=== PATIENT | male | born 1975 | race Caucasian/White ===

== ENCOUNTER 2025-01-31 17:30 | Emergency (ER) | payer BC, MEDICAID ==
[2025-01-31] MEDS: Iopamidol 755 Mg/ML 100 ML Bottle IVPUSH ONE (17:38)
[2025-01-31] MEDS ORDERED: Sodium Chloride 0.9% 10 ML Syringe FLUSH PRN (17:47)
[2025-01-31 18:05] LABS: BASOPHILS PERCENT AUTO 0.6 % (0.0-1.0); EOSINOPHILS PERCENT AUTO 2.6 % (1.0-3.0); LYMPHOCYTES PERCENT AUTO 33.0 % (20.5-50.1); MONOCYTES PERCENT AUTO 6.5 % (2-8); NEUTROPHILS PERCENT AUTO 57.3 % (42.2-75.2); PLATELET COUNT,PLT 75 10^3/uL (150-450); RED BLOOD CELL COUNT 4.62 10^6/uL (4.6-6.2); WHITE BLOOD CELL COUNT,WBC 6.9 10^3/uL (5.0-10.0)
[2025-01-31 18:25] LABS: INR 1.0 (0.9-1.2); PTT,PARTIAL THROMBOPLSTIN TIME 18.9 SEC (22.0-34.0)
[2025-01-31 18:31] LABS: LACTIC ACID 1.1 mmol/L (0.4-2.0)
[2025-01-31] MEDS: fentaNYL 100 MCG/2 ML SDV IVPUSH ONE (18:34)
[2025-01-31 18:40] LABS: ALANINE AMINOTRANSFERASE,ALT 23 U/L (16-63); ASPARTATE AMNIOTRANSFERASE,AST 27 U/L (15-37); BILIRUBIN TOTAL 0.2 mg/dL (0.2-1.0); BLOOD UREA NITROGEN,BUN 7 mg/dL (7-18); CARBON DIOXIDE,CO2 27 mmol/L (21-32); CHLORIDE,CL 109 mmol/L (98-107); CREATININE 0.62 mg/dL (0.70-1.30); GLUCOSE RANDOM 108 mg/dL (70-99); POTASSIUM,K 4.0 mmol/L (3.5-5.1); PROTEIN TOTAL,TP 7.0 g/dL (6.4-8.2); SODIUM,NA 146 mmol/L (136-145)
[2025-01-31 18:42] LABS: A/G RATIO 0.84; ESTIMATED GFR 119 mL/min (>=60); ETHANOL BLOOD MEDICAL < 3 mg/dL (0)
[2025-01-31 18:50] LABS: APPEARANCE,URINE CLEAR (CLEAR); GLUCOSE,URINE NEGATIVE (NEGATIVE); OCCULT BLOOD,URINE NEGATIVE (NEGATIVE)
[2025-01-31 18:51] LABS: METHAMPHETAMINES,URINE NEGATIVE (NEGATIVE)
[2025-01-31 18:52] LABS: AMPHETAMINES,URINE NEGATIVE (NEGATIVE); BARBITURATES,URINE NEGATIVE (NEGATIVE); MDMA (ECSTASY), URINE NEGATIVE (NEGATIVE); OPIATES,URINE NEGATIVE (NEGATIVE); OXYCODONE,URINE NEGATIVE (NEGATIVE); PHENCYCLIDINE,URINE NEGATIVE (NEGATIVE); TCA,URINE NEGATIVE (NEGATIVE)
== END 2025-01-31 19:26 ==
LOC: DL.ED 17:30
DX: I10 Essential (primary) hypertension (principal); R47.01 Aphasia; Z86.73 Personal history of transient ischemic attack (TIA), and cerebral infarction without residual deficits
CPT/HCPCS: 36415; 70450; 70496; 70498; 71045; 80053; 80305; 80307; 81003; 82947; 83605; 83735; 85025; 85610; 85730; 86140; 93005; 93010; 96374; 96375; 99285; J3010; J3360; Q9967

== ENCOUNTER 2025-02-13 15:22 | Emergency (ER) | payer BC ==
[2025-02-13] MEDS ORDERED: Sodium Chloride 0.9% 10 ML Syringe FLUSH PRN (15:57)
[2025-02-13] MEDS: Dexamethasone 4 MG/ML SDV IVPUSH ONE (16:19)
[2025-02-13 16:21] LABS: BASOPHILS PERCENT AUTO 0.3 % (0.0-1.0); EOSINOPHILS PERCENT AUTO 2.2 % (1.0-3.0); LYMPHOCYTES PERCENT AUTO 27.2 % (20.5-50.1); MONOCYTES PERCENT AUTO 11.0 % (2-8); NEUTROPHILS PERCENT AUTO 59.3 % (42.2-75.2); PLATELET COUNT,PLT 427 10^3/uL (150-450); RED BLOOD CELL COUNT 4.78 10^6/uL (4.6-6.2); WHITE BLOOD CELL COUNT,WBC 10.1 10^3/uL (5.0-10.0)
[2025-02-13 16:46] LABS: LACTIC ACID 1.0 mmol/L (0.4-2.0)
[2025-02-13 16:48] LABS: INR 1.0 (0.9-1.2); PTT,PARTIAL THROMBOPLSTIN TIME 26.7 SEC (22.0-34.0)
[2025-02-13 16:53] LABS: ALANINE AMINOTRANSFERASE,ALT 31 U/L (16-63); ASPARTATE AMNIOTRANSFERASE,AST 35 U/L (15-37); BILIRUBIN TOTAL 0.4 mg/dL (0.2-1.0); BLOOD UREA NITROGEN,BUN 11 mg/dL (7-18); CARBON DIOXIDE,CO2 32 mmol/L (21-32); CHLORIDE,CL 103 mmol/L (98-107); CREATININE 0.59 mg/dL (0.70-1.30); EST CRCL DRUG DOSING (CG) 217.87 mL/min; GLUCOSE RANDOM 90 mg/dL (70-99); POTASSIUM,K 4.3 mmol/L (3.5-5.1); PROTEIN TOTAL,TP 7.8 g/dL (6.4-8.2); SODIUM,NA 141 mmol/L (136-145)
[2025-02-13 16:56] LABS: A/G RATIO 0.70; ESTIMATED GFR 120 mL/min (>=60); ETHANOL BLOOD MEDICAL < 3 mg/dL (0)
[2025-02-13 17:22] LABS: AMPHETAMINES,URINE NEGATIVE (NEGATIVE); BARBITURATES,URINE NEGATIVE (NEGATIVE); MDMA (ECSTASY), URINE NEGATIVE (NEGATIVE); METHAMPHETAMINES,URINE NEGATIVE (NEGATIVE); OPIATES,URINE NEGATIVE (NEGATIVE); OXYCODONE,URINE NEGATIVE (NEGATIVE); PHENCYCLIDINE,URINE NEGATIVE (NEGATIVE); TCA,URINE POSITIVE (NEGATIVE)
== END 2025-02-13 18:18 | disposition home or self-care (01) ==
LOC: DL.ED 15:22
DX: R47.81 Slurred speech (principal); R51.9 Headache, unspecified; Z86.73 Personal history of transient ischemic attack (TIA), and cerebral infarction without residual deficits
CPT/HCPCS: 36415; 70450; 80053; 80305; 80307; 83605; 83735; 84484; 85025; 85610; 85730; 86140; 93005; 93010; 96374; 99284; 99285; A9270; J1100

== ENCOUNTER 2025-02-14 21:55 | Inpatient (IN) | payer BC ==
[2025-02-14] MEDS: Ondansetron 4 MG/2 ML SDV IVPUSH ONE (23:02)
[2025-02-14 23:05] LABS: PLATELET COUNT,PLT 508 10^3/uL (150-450); RED BLOOD CELL COUNT 5.13 10^6/uL (4.6-6.2); WHITE BLOOD CELL COUNT,WBC 23.0 10^3/uL (5.0-10.0)
[2025-02-14] MEDS: Ketorolac 30 MG/ML SDV IM ONE (23:06)
[2025-02-14 23:08] LABS: BASOPHILS PERCENT AUTO 0.0 % (0.0-1.0); EOSINOPHILS PERCENT AUTO 0.0 % (1.0-3.0); LYMPHOCYTES PERCENT AUTO 11.0 % (20.5-50.1); MONOCYTES PERCENT AUTO 5.3 % (2-8); NEUTROPHILS PERCENT AUTO 83.7 % (42.2-75.2)
[2025-02-14 23:30] LABS: A/G RATIO 0.7; ALANINE AMINOTRANSFERASE,ALT 27.0 U/L (16-63); ASPARTATE AMNIOTRANSFERASE,AST 16.0 U/L (15-37); BILIRUBIN TOTAL 0.2 mg/dL (0.2-1.0); BLOOD UREA NITROGEN,BUN 14.0 mg/dL (7-18); CARBON DIOXIDE,CO2 29.0 mmol/L (21-32); CHLORIDE,CL 103.0 mmol/L (98-107); CREATININE 0.88 mg/dL (0.70-1.30); EST CRCL DRUG DOSING (CG) 116.02 mL/min; GLUCOSE RANDOM 135.0 mg/dL (70-99); POTASSIUM,K 4.0 mmol/L (3.5-5.1); PROTEIN TOTAL,TP 8.6 g/dL (6.4-8.2); SODIUM,NA 142.0 mmol/L (136-145)
[2025-02-14 23:31] LABS: ESTIMATED GFR 106.0 mL/min (>=60); LACTIC ACID 1.5 mmol/L (0.4-2.0)
[2025-02-14] MEDS: fentaNYL 100 MCG/2 ML SDV IVPUSH ONE (23:35)
[2025-02-14] MEDS: Iopamidol 612 MG/ML 100 ML Bottle IVPUSH ONE (23:55)
[2025-02-15 00:29] LABS: BAND PERCENT MAN 3 %; LYMPHOCYTES PERCENT MAN 10 % (20-50); MONOCYTES PERCENT MAN 7 % (2-8); SEG NEUTROPHILS PERCENT MAN 80 % (42-75)
[2025-02-15] MEDS: fentaNYL 100 MCG/2 ML SDV IVPUSH ONE ×4 (00:45→16:17)
[2025-02-15 02:54] LABS: APPEARANCE,URINE CLEAR (CLEAR); GLUCOSE,URINE NEGATIVE (NEGATIVE); OCCULT BLOOD,URINE TRACE-INTACT (NEGATIVE)
[2025-02-15 02:58] LABS: AMPHETAMINES,URINE NEGATIVE (NEGATIVE); BARBITURATES,URINE NEGATIVE (NEGATIVE); MDMA (ECSTASY), URINE NEGATIVE (NEGATIVE); METHAMPHETAMINES,URINE NEGATIVE (NEGATIVE); OPIATES,URINE NEGATIVE (NEGATIVE); OXYCODONE,URINE NEGATIVE (NEGATIVE); PHENCYCLIDINE,URINE NEGATIVE (NEGATIVE); TCA,URINE POSITIVE (NEGATIVE)
[2025-02-15 03:02] LABS: EPITHELIAL CELLS,URINE RARE /HPF (NOT SEEN)
[2025-02-15] MEDS: Aluminum Hydroxide/Magnesium Hydroxide/Simethicone Susp 30 ML Cup PO ONE (03:24)
[2025-02-15 06:50] LABS: PHOSPHORUS 4.4 mg/dL (2.6-4.7)
[2025-02-15] MEDS: Ondansetron 4 MG/2 ML SDV IVPUSH PRN (07:47)
[2025-02-15] MEDS: Dexamethasone 4 MG/ML SDV IVPUSH SCH ×3 (08:06→22:10)
[2025-02-15 08:43] LABS: APPEARANCE CSF BLOODY; COLOR,CSF PINK; TUBE NUMBER,CSF 1; TUBE VOLUME,CSF 2
[2025-02-15 08:44] LABS: RBC,CSF 2587; SUPERNATANT APPEAR,CSF NO XANTHOCHROMIA; WBC,CSF 0
[2025-02-15 08:45] LABS: APPEARANCE CSF CLEAR; COLOR,CSF COLORLESS; SUPERNATANT APPEAR,CSF NO XANTHOCHROMIA; TUBE NUMBER,CSF 3; TUBE VOLUME,CSF 3.5; WBC,CSF 0
[2025-02-15 08:46] LABS: RBC,CSF 25
[2025-02-15 08:52] LABS: PROTEIN,CSF 52 mg/dL (15-45)
[2025-02-15] MEDS ORDERED: Flumazenil 0.1 MG/ML 5 ML MDV IVPUSH PRN (10:45)
[2025-02-15] MEDS ORDERED: Sennosides/Docusate Sodium 50-8.6 MG Tab PO PRN (11:29)
[2025-02-15] MEDS ORDERED: Magnesium Hydroxide 400 MG/5 ML Susp 30 ML Cup PO PRN (11:29)
[2025-02-15] MEDS: fentaNYL 25 MCG/HR Transdermal Patch TRDERM ONE ×2 (11:32→21:00)
[2025-02-15] MEDS: Scopalamine 1mg/3day Transdermal Patch TOP ONE (11:35)
[2025-02-15] MEDS ORDERED: SODIUM CHLORIDE 0.9% IV PRN (12:00)
[2025-02-15] MEDS ORDERED: VALPROATE SODIUM IV PRN (12:00)
[2025-02-15] MEDS: niCARdipine/Normal Saline 20 MG in Premix Bag 1 BAG IV SCH (13:00)
[2025-02-15] MEDS: MVI, Adult with Vitamin K 10 ML, Folic Acid 1 MG, Thiamine 100 MG in Lactated Ringers 1... IV ONE (13:06)
[2025-02-15] MEDS: Capsaicin 0.025% Crm 60 GM Tube TOP SCH (14:04)
[2025-02-15] MEDS ORDERED: fentaNYL 100 MCG/2 ML SDV IVPUSH PRN (15:35)
[2025-02-15] MEDS ORDERED: Acetaminophen/Butalbital/Caffeine 325-50-40 MG Tab PO PRN (16:20)
[2025-02-15] MEDS: cloNIDine 0.1 MG/Day Transdermal Patch TRDERM ONE (16:23)
[2025-02-15 16:32] LABS: PLATELET COUNT,PLT 450.0 10^3/uL (150-450); RED BLOOD CELL COUNT 4.61 10^6/uL (4.6-6.2); WHITE BLOOD CELL COUNT,WBC 18.4 10^3/uL (5.0-10.0)
[2025-02-15] MEDS: Acetaminophen/oxyCODONE 325-5 MG Tab PO PRN (19:54)
[2025-02-15] MEDS ORDERED: Acetaminophen/oxyCODONE 325-5 MG Tab PO PRN (21:11)
[2025-02-15] MEDS: Heparin Sodium 5,000 Units/ML Vial SUBCUT SCH (22:10)
[2025-02-16 06:36] LABS: BASOPHILS PERCENT AUTO 0.1 % (0.0-1.0); EOSINOPHILS PERCENT AUTO 0.0 % (1.0-3.0); LYMPHOCYTES PERCENT AUTO 6.9 % (20.5-50.1); MONOCYTES PERCENT AUTO 2.9 % (2-8); NEUTROPHILS PERCENT AUTO 90.1 % (42.2-75.2); PLATELET COUNT,PLT 447 10^3/uL (150-450); RED BLOOD CELL COUNT 4.01 10^6/uL (4.6-6.2); WHITE BLOOD CELL COUNT,WBC 22.1 10^3/uL (5.0-10.0)
[2025-02-16 07:03] LABS: BLOOD UREA NITROGEN,BUN 14.0 mg/dL (7-18); CARBON DIOXIDE,CO2 25.0 mmol/L (21-32); CHLORIDE,CL 103.0 mmol/L (98-107); CREATININE 0.61 mg/dL (0.70-1.30); EST CRCL DRUG DOSING (CG) 167.37 mL/min; GLUCOSE RANDOM 161.0 mg/dL (70-99); POTASSIUM,K 4.4 mmol/L (3.5-5.1); SODIUM,NA 137.0 mmol/L (136-145)
[2025-02-16 07:04] LABS: ESTIMATED GFR 118.0 mL/min (>=60)
[2025-02-16 07:20] LABS: SEDIMENTATION RATE MANUAL 25 mm/hr (0-15)
[2025-02-16] MEDS ORDERED: VILOXAZINE HCL 200 MG PO SCH (09:00)
[2025-02-16] MEDS: Sodium Chloride 0.9% 10 ML Syringe FLUSH PRN (20:16)
[2025-02-16] MEDS: Acetaminophen/oxyCODONE 325-5 MG Tab PO PRN (21:35)
[2025-02-17 07:43] LABS: CREATININE 0.77 mg/dL (0.70-1.30); EST CRCL DRUG DOSING (CG) 132.59 mL/min
[2025-02-17 07:47] LABS: ESTIMATED GFR 110.0 mL/min (>=60)
[2025-02-18 05:46] LABS: WEST NILE AB, CSF 0.0 IV (<=0.89)
[2025-02-18 06:47] LABS: VDRL, CSF Non Reactive (Non Reactive)
[2025-02-18] MEDS ORDERED: fentaNYL 25 MCG/HR Transdermal Patch TRDERM SCH (11:30)
== END 2025-02-17 12:25 | disposition home or self-care (01) | DRG 773 ==
LOC: DL.ED 21:55 → DL.MS 02-15 04:08
PROVIDERS: ADMIT Internal Medicine; ATTEND Internal Medicine
PROC: HZ2ZZZZ Detoxification Services for Substance Abuse Treatment (ICD-10-PCS; principal; 2025-02-15)
PROC: 00JU3ZZ Inspection of Spinal Canal, Percutaneous Approach (ICD-10-PCS; principal; 2025-02-15)
DX: F11.23 Opioid dependence with withdrawal (principal); F19.239 Other psychoactive substance dependence with withdrawal, unspecified; I16.1 Hypertensive emergency; I67.4 Hypertensive encephalopathy; E86.0 Dehydration; F41.9 Anxiety disorder, unspecified; F32.A Depression, unspecified; F90.9 Attention-deficit hyperactivity disorder, unspecified type; F43.12 Post-traumatic stress disorder, chronic; F17.200 Nicotine dependence, unspecified, uncomplicated; R11.2 Nausea with vomiting, unspecified; E66.01 Morbid (severe) obesity due to excess calories; D72.829 Elevated white blood cell count, unspecified; Z98.890 Other specified postprocedural states; Z68.41 Body mass index [BMI] 40.0-44.9, adult; Z88.8 Allergy status to other drugs, medicaments and biological substances; Z93.2 Ileostomy status; Z79.899 Other long term (current) drug therapy; Z86.73 Personal history of transient ischemic attack (TIA), and cerebral infarction without residual deficits
CPT/HCPCS: 36415; 71045; 74177; 76770; 80048; 80053; 80202; 80305-QW; 81001; 82550; 82565; 82945; 83605; 83690; 83735; 84100; 84145; 84157; 84484; 85025; 85027; 85651; 86140; 86592; 86788; 87040; 87070; 87205; 87483; 89050; 93306; 96361; 96374; 96375; 96376; 99285-25; A9270-GY; J0290; J0696; J1100; J1171; J1630; J1644; J1808; J1885; J1920; J2404; J2405; J2470; J2765; J3010; J3360; J3373; J3411; J3490; J7030; J7040; J7120; Q9967; S5010